=== PATIENT | male | born 1980 | race Two or more races ===

== ENCOUNTER 2021-10-07 12:19 | Outpatient (REF) | payer SELFPAY ==
[2021-10-07 13:15] LABS: Binax Internal Control QC Valid; Binax Lot number: 9864; Binax Now Covid-19 Ag Positive (Negative)
== END 2021-10-07 12:20 | disposition home or self-care (01) ==
LOC: HO.LAB 12:19
PROVIDERS: Visit Provider Internal Medicine
DX: Z20.822 Contact with and (suspected) exposure to COVID-19 (principal)
CPT/HCPCS: 36415; C9803